=== PATIENT | male | born 1940 | race Caucasian/White ===

== ENCOUNTER 2017-10-08 23:39 | Inpatient (IN) | payer OTHER ==
--- NOTE | 2017-10-08 23:52 | PDOC ---
History of Present Illness - General History Source: Patient, Spouse Exam Limitations: No Limitations - History of Present Illness Initial Comments: 10/09/17 01:08 The patient is a 77 year old male with a significant PMH of anemia, and an umbilical hernia repair who presents to the emergency department with a seizure prior to arrival . The patient's reports that he was at home laying in the couch watching television. The patient's reports that she heard the patient in the next room groaning. The patient's reports that she noticed the patient's entire body seizing. The patient's reports that the patient was seizing for 5-6 minutes. The patient reports that he took a short nap earlier in the day. He states that he felt some tingling in his hands when he woke up. The patient reports that he is experiencing associated right shoulder pain secondary to seizure. The patient reports that he only remembers falling asleep and then waking up to medics surrounding him. The patient denies any other symptoms prior to seizure. He denies any headache, palpitations, chest pain, shortness of breath, headache and dizziness. He denies fever, chills, nausea, vomit, diarrhea ,constipation or urinary symptoms. The patient denies any other complaints. 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) Disorders: Yes (FATTY LIVER) HTN: No Hypercholesterolemia: No Liver Disease: No Seizures: No Thyroid Disease: No - Surgical History Abdominal Surgery: Yes (REPAIR UMBILICAL HERNIA) Appendectomy: No Cardiac Surgery: No Cholecystectomy: No Lung Surgery: No Neurologic Surgery: No - Immunization History Immunization Up to Date: Yes - Suicide/Smoking/Psychosocial Hx Smoking Status: No Smoking History: Never smoked Number of Cigarettes Smoked Daily: 0 Cigars Per Day: 0 Hx Alcohol Use: Yes (OCCASIONAL) Drug/Substance Use Hx: No Substance Use Type: None Hx Substance Use Treatment: No <Filomena Lopez - Last Filed: 10/10/17 17:00> - Past Medical History Allergies/Adverse Reactions: Allergies Allergy/AdvReac Type Severity Reaction Status Date / Time Sulfa (Sulfonamide Allergy Rash Verified 10/08/17 23:59 Antibiotics) Home Medications: Ambulatory Orders Cholecalciferol (Vitamin D3) [Vitamin D -] 400 unit PO DAILY 03/31/16 Ferrous Sulfate [Feosol] 325 mg PO DAILY 03/31/16 Vitamin E 1,000 unit PO DAILY 03/31/16 Amlodipine Besylate 10 mg PO DAILY 10/09/17 Atorvastatin Ca [Lipitor] 10 mg PO HS 10/09/17 Docusate Sodium [Colace -] 100 mg PO BID PRN capsule 10/10/17 levETIRAcetam [Keppra -] 500 mg PO DAILY 30 Days #60 tablet NS 10/10/17 Review of Systems - Review of Systems Able to Perform ROS?: Yes Comments:: 10/09/17 01:08 GENERAL/CONSTITUTIONAL: (+)seizure episode. No fever or chills. No weakness. HEAD, EYES, EARS, NOSE AND THROAT: No change in vision. No ear pain or discharge. No sore throat. CARDIOVASCULAR: No chest pain or shortness of breath. RESPIRATORY: No cough, wheezing, or hemoptysis. GASTROINTESTINAL: No nausea, vomiting, diarrhea or constipation. GENITOURINARY: No dysuria, frequency, or change in urination. MUSCULOSKELETAL: No joint or muscle swelling or pain. No neck or back pain. SKIN: No rash NEUROLOGIC: No headache, vertigo, loss of consciousness, or change in strength/ sensation. ENDOCRINE: No increased thirst. No abnormal weight change. HEMATOLOGIC/LYMPHATIC: No anemia, easy bleeding, or history of blood clots. ALLERGIC/IMMUNOLOGIC: No hives or skin allergy. <Sunny Goff - Last Filed: 10/09/17 01:07> *Physical Exam - Vital Signs Last Vital Signs Temp Pulse Resp BP Pulse Ox 98.2 F 71 19 134/85 98 10/08/17 23:55 10/08/17 23:55 10/08/17 23:55 10/08/17 23:55 10/08/17 23:55 - Physical Exam Comments: 10/09/17 01:08 GENERAL: Awake, alert, and fully oriented, in no acute distress HEAD: No signs of trauma EYES: PERRLA, EOMI, sclera anicteric, conjunctiva clear ENT: Auricles normal inspection, hearing grossly normal, nares patent, oropharynx clear without exudates. Moist mucosa NECK: Normal ROM, supple, no lymphadenopathy, JVD, or masses LUNGS: Breath sounds equal, clear to auscultation bilaterally. No wheezes, and no crackles HEART: Regular rate and rhythm, normal S1 and S2, no murmurs, rubs or gallops ABDOMEN: (+)obese belly, Soft, nontender, normoactive bowel sounds. No guarding , no rebound. No masses EXTREMITIES: Normal range of motion, no edema. No clubbing or cyanosis. No cords, erythema, or tenderness NEUROLOGICAL: Cranial nerves II through XII grossly intact. Normal speech, normal gait SKIN: Warm, Dry, normal turgor, no rashes or lesions noted. <Sunny Goff - Last Filed: 10/09/17 01:07> Heart Score/ECG Review - ECG Intrepretation Comment:: 10/09/17 01:17 sinus at 63, nl axis, nl interval, t wave flattening diffusely <Filomena Lopez - Last Filed: 10/10/17 17:00> ED Treatment Course - LABORATORY CBC & Chemistry Diagram: 10/09/17 08:00 10/09/17 08:00 <Filomena Lopez - Last Filed: 10/10/17 17:00> Medical Decision Making - Medical Decision Making 10/09/17 01:13 a/p: 77yo male with seizure activity tonight -currently resolved, sounded tonic clonic per the family small tongue bite no urinary incontinence changed norvasc dose last week - only medication change hx of seizure activity 1 year ago assoc with htn med change will obtain head ct, labs, ekg, cxr will discuss with neuro will keep in obs for further eval 10/09/17 01:[address] Barnard 10/09/17 01:19 Dr. Barnard recommends MRI with contrast of the brain and will see the patient in consult. <Filomena Lopez - Last Filed: 10/10/17 17:00> *DC/Admit/Observation/Transfer - Attestations Scribe Attestion: 10/09/17 01:08 Documentation prepared by Sunny Goff, acting as medical clerk for Filomena Lopez MD. <Sunny Goff - Last Filed: 10/09/17 01:07> - Discharge Dispostion Decision to Admit order: Yes - Attestations Physician Attestion: 10/10/17 17:00 I, Dr. Filomena Lopez, DO, attest that this document has been prepared under my direction and personally reviewed by me in its entirety. I further attest, that it accurately reflects all work, treatment, procedures and medical decision -making performed by me. <Filomena Lopez - Last Filed: 10/10/17 17:00> Diagnosis at time of Disposition: Seizure - Discharge Dispostion Disposition: HOME Condition at time of disposition: Stable
[2017-10-09 01:33] LABS: BASO % 0.4 % (0-2.0); HEMOGLOBIN 14.7 GM/dL (11.7-16.9); LYMPH % 8.2 % (8-40); MCH 29.7 pg (25.7-33.7); MCHC 33.4 g/dl (32.0-35.9); MEAN CELL VOLUME 89.1 fl (80-96); MEAN PLT VOLUME 9.2 fl (7.5-11.1); NEUT % 83.4 % (42.8-82.8); PLATELET COUNT 160 K/MM3 (134-434); RBC 4.94 M/mm3 (4.00-5.60); RDW 14.8 % (11.9-15.9)
[2017-10-09 01:47] LABS: INR 0.97 (0.82-1.09)
[2017-10-09 01:50] LABS: ACTIVATED PTT 22.8 SECONDS (26.9-34.4)
[2017-10-09 01:58] LABS: ALBUMIN 3.8 g/dl (3.4-5.0); ALK PHOS 87 U/L (45-117); ANION GAP 6 (8-16); BILIRUBIN,TOTAL 0.5 mg/dL (0.2-1.0); BLOOD UREA NITROGEN 23 mg/dL (7-18); CALCIUM 8.7 mg/dL (8.5-10.1); CHLORIDE 108 mmol/L (98-107); CO2 26 mmol/L (21-32); CREATININE 1.4 mg/dL (0.7-1.3); GLUCOSE,RANDOM 148 mg/dL (74-106); MAGNESIUM 2.3 mg/dL (1.8-2.4); SGOT/AST 19 U/L (15-37); SGPT/ALT 32 U/L (12-78); SODIUM 140 mmol/L (136-145); TOT PROT 7.4 g/dl (6.4-8.2)
[2017-10-09] MEDS ORDERED: PIPERACILLIN/TAZOB 3.375 GM 3.375 GM/50 ML BAG IVPB ONE (01:58)
[2017-10-09 02:13] LABS: URINE APPEARANCE CLEAR; URINE BILIRUBIN NEGATIVE (<2.0 mg/dL); URINE BLOOD NEGATIVE (NEGATIVE); URINE COLOR LTYELLOW; URINE GLUCOSE (UA) NEGATIVE (NEGATIVE); URINE KETONE NEGATIVE (NEGATIVE); URINE LEUK ESTERASE NEGATIVE (NEGATIVE); URINE NITRITE NEGATIVE (NEGATIVE); URINE PROTEIN NEGATIVE (NEGATIVE); URINE UROBILINOGEN NEGATIVE mg/dL (0.2-1.0)
--- NOTE | 2017-10-09 02:45 | PDOC ---
*Physical Exam - Vital Signs Last Vital Signs Temp Pulse Resp BP Pulse Ox 98.2 F 71 19 134/85 98 10/08/17 23:55 10/08/17 23:55 10/08/17 23:55 10/08/17 23:55 10/08/17 23:55 ED Treatment Course - LABORATORY CBC & Chemistry Diagram: 10/09/17 01:22 10/09/17 01:22 - ADDITIONAL ORDERS Additional order review: Laboratory Results 10/09/17 10/09/17 10/09/17 01:56 01:22 01:22 PT with INR INR PTT (Actin FS) Sodium Potassium Chloride Carbon Dioxide Anion Gap BUN Creatinine Creat Clearance w eGFR Random Glucose Lactic Acid 1.9 Calcium Magnesium Total Bilirubin AST ALT Alkaline Phosphatase Creatine Kinase Creatine Kinase Index CK-MB (CK-2) Troponin I B-Natriuretic Peptide 61.61 Total Protein Albumin Urine Color Ltyellow Urine Appearance Clear Urine pH 5.0 Ur Specific Basehor 1.020 Urine Protein Negative Urine Glucose (UA) Negative Urine Ketones Negative Urine Blood Negative Urine Nitrite Negative Urine Bilirubin Negative Urine Urobilinogen Negative Ur Leukocyte Esterase Negative 10/09/17 10/09/17 01:22 01:22 PT with INR 11.00 INR 0.97 PTT (Actin FS) 22.8 L Sodium 140 Potassium 4.0 Chloride 108 H Carbon Dioxide 26 D Anion Gap 6 L BUN 23 H Creatinine 1.4 H Creat Clearance w eGFR 49.14 Random Glucose 148 H D Lactic Acid Calcium 8.7 Magnesium 2.3 Total Bilirubin 0.5 AST 19 D ALT 32 D Alkaline Phosphatase 87 Creatine Kinase 230 Creatine Kinase Index 1.0 CK-MB (CK-2) 2.34 Troponin I < 0.02 B-Natriuretic Peptide Total Protein 7.4 Albumin 3.8 Urine Color Urine Appearance Urine pH Ur Specific Basehor Urine Protein Urine Glucose (UA) Urine Ketones Urine Blood Urine Nitrite Urine Bilirubin Urine Urobilinogen Ur Leukocyte Esterase 10/09/17 01:22 RBC 4.94 MCV 89.1 MCHC 33.4 RDW 14.8 D MPV 9.2 Neutrophils % 83.4 H D Lymphocytes % 8.2 D Monocytes % 7.0 Eosinophils % 1.0 Basophils % 0.4 Medical Decision Making - Medical Decision Making 10/09/17 02:43 Sign-out received from outgoing Emergency Physician Dr. Lopez Ancillary studies reviewed Case discussed in detail with oncoming Emergency Physician including history, physical exam and ancillary studies. Labs reviewed. Case discussed with Dr. Nolasco. Will admit to med/surg observation. Case discussed in detail with admitting physician including history, physical exam and ancillary studies. Admitting physician has assumed care for the patient, will follow all pending diagnostics and will complete the evaluation and treatment. *DC/Admit/Observation/Transfer Diagnosis at time of Disposition: Seizure - Discharge Dispostion Condition at time of disposition: Fair Decision to Admit order: Yes - Referrals Referrals: Sunday Hannah MD [Primary Care Provider] - - Patient Instructions - Post Discharge Activity
[2017-10-09 06:43] VITALS: BMI 36.4
[2017-10-09] MEDS ORDERED: DOCUSATE SODIUM 100 MG CAPSULE (FP) PO PRN (07:33)
[2017-10-09 08:41] LABS: CHLORIDE 109 mmol/L (98-107); POTASSIUM 4.4 mmol/L (3.5-5.1); SODIUM 141 mmol/L (136-145)
[2017-10-09 08:52] LABS: BASO % 0.5 % (0-2.0); EOS % 1.6 % (0-4.5); HEMATOCRIT 42.3 % (35.4-49); HEMOGLOBIN 14.1 GM/dL (11.7-16.9); LYMPH % 17.3 % (8-40); MCHC 33.4 g/dl (32.0-35.9); MEAN CELL VOLUME 89.7 fl (80-96); MEAN PLT VOLUME 9.3 fl (7.5-11.1); MONO % 10.3 % (3.8-10.2); NEUT % 70.3 % (42.8-82.8); PLATELET COUNT 145 K/MM3 (134-434); RBC 4.71 M/mm3 (4.00-5.60); RDW 14.5 % (11.9-15.9)
[2017-10-09 09:08] LABS: ALBUMIN 3.7 g/dl (3.4-5.0); ALK PHOS 82 U/L (45-117); ANION GAP 8 (8-16); BILIRUBIN,TOTAL 0.6 mg/dL (0.2-1.0); BLOOD UREA NITROGEN 21 mg/dL (7-18); CALCIUM 8.7 mg/dL (8.5-10.1); CO2 24 mmol/L (21-32); CREATININE 1.2 mg/dL (0.7-1.3); GLUCOSE,RANDOM 100 mg/dL (74-106); MAGNESIUM 2.3 mg/dL (1.8-2.4); PHOSPHOROUS 2.9 mg/dL (2.5-4.9); SGOT/AST 25 U/L (15-37); SGPT/ALT 28 U/L (12-78)
[2017-10-09] MEDS ORDERED: PATIENT'S OWN MEDICATION (NON-FORMULARY) (Vitamin E [Vitamin E] 1,000 UNIT) PO SCH (10:00)
[2017-10-09] MEDS: CHOLECALCIFEROL (VITAMIN D3) 400 UNIT TABLET (FP) PO SCH (10:03)
[2017-10-09] MEDS: amLODIPine BESYLATE 10 MG TABLET (FP) PO SCH (10:03)
[2017-10-09] MEDS: FERROUS SO4 325 MG TABLET (FP) PO SCH (10:03)
--- NOTE | 2017-10-09 10:20 | EKG ---
Test Reason : Blood Pressure : / mmHG Vent. Rate : 063 BPM Atrial Rate : 063 BPM P-R Int : 194 ms QRS Dur : 116 ms QT Int : 420 ms P-R-T Axes : 016 007 008 degrees QTc Int : 429 ms SINUS RHYTHM WITH MARKED SINUS ARRHYTHMIA NONSPECIFIC ST ABNORMALITY WHEN COMPARED WITH ECG OF 08-JAN-2013 12:50, PREMATURE VENTRICULAR COMPLEXES ARE NO LONGER PRESENT Confirmed by ANN MARIE SOOD MD ([id number]) on 10/09/2017 10:19:47 AM Referred By: Confirmed By:ANN MARIE SOOD MD
--- NOTE | 2017-10-09 14:20 | CON.NEURO ---
Consult - Alcohol/Substance Use Hx Alcohol Use: Yes (OCCASIONAL) - Smoking History Smoking history: Never smoked Have you smoked in the past 12 months: No Aproximately how many cigarettes per day: 0 Home Medications - Allergies Allergies/Adverse Reactions: Allergies Allergy/AdvReac Type Severity Reaction Status Date / Time Sulfa (Sulfonamide Allergy Rash Verified 10/08/17 23:59 Antibiotics) - Home Medications Home Medications: Ambulatory Orders Cholecalciferol (Vitamin D3) [Vitamin D3 -] 400 unit PO DAILY 03/31/16 Ferrous Sulfate [Feosol] 325 mg PO DAILY 03/31/16 Vitamin E 1,000 unit PO DAILY 03/31/16 Amlodipine Besylate 10 mg PO DAILY 10/09/17 Atorvastatin Ca [Lipitor] 10 mg PO HS 10/09/17 Physical Exam-Neuro Vital Signs: Vital Signs Temperature 98.1 F 10/09/17 06:34 Pulse Rate 60 10/09/17 06:34 Respiratory Rate 18 10/09/17 06:34 Blood Pressure 148/96 10/09/17 06:34 O2 Sat by Pulse Oximetry (%) 96 10/09/17 06:34 Labs: CBC, BMP 10/09/17 08:00 10/09/17 08:00 INR, PTT INR 0.97 (0.82-1.09) 10/09/17 01:22 Assessment/Plan cc episode of seizure HPI 77 year old male history of Anemia, HTN, HLD. He presented with generalized tonic clonic seizure , as described by patient ( as per family told him). He has similar episode in past and work up was negative and was thought to be attributed to Hypertensive medication change. This time he has small tongue bite and no incontinence. His metabolite were normal. He denies any other focal neurological condition. his ct scan of brain and mri ofbrain is normal. PMH as above SH,ROS,FH reviewed in chart Allergies/Adverse Reactions: Allergies Allergy/AdvReac Type Severity Reaction Status Date / Time Sulfa (Sulfonamide Allergy Rash Verified 10/08/17 23:59 Antibiotics) Home Medications: Cholecalciferol (Vitamin D3) [Vitamin D3 -] 400 unit PO DAILY 03/31/16 Ferrous Sulfate [Feosol] 325 mg PO DAILY 03/31/16 Vitamin E 1,000 unit PO DAILY 03/31/16 Norvasc 10 mg once a day Simvastatin 10mg once a day Neurological Examination Alert oriented x 3, speech is normal, able to follow command EOMI, PUpils is reactive, no face asymmetry Moving all extremity sensation is normal gait and coordination MRI of brain showed there is slight asymmetry of temporal lobe ct head unremarkable Assessment- Second episode of unprovoked seizure, neuro exam is normal neur imaging is normal Plan- Suggest to start AED keppra 500 mg po bid seizure precautions follow up outpatient, would do eeg outpatient Thnaking you so much Pelon Barnard MD
[2017-10-09] MEDS: levETIRAcetam 500 MG TABLET (FP) PO SCH (16:35)
[2017-10-09] MEDS ORDERED: ATORVASTATIN CA 10 MG TABLET (FP) PO SCH (22:00)
--- NOTE | 2017-10-10 08:47 | PN ---
Progress Note (short form) - Note Progress Note: HPI 77 year old male history of Anemia, HTN, HLD. He presented with generalized tonic clonic seizure , as described by patient ( as per family told him). He has similar episode in past and work up was negative and was thought to be attributed to Hypertensive medication change. This time he has small tongue bite and no incontinence. His metabolite were normal. He denies any other focal neurological condition. his ct scan of brain and mri ofbrain is normal. P Neurological Examination Alert oriented x 3, speech is normal, able to follow command EOMI, PUpils is reactive, no face asymmetry Moving all extremity sensation is normal gait and coordination MRI of brain showed there is slight asymmetry of temporal lobe ct head unremarkable Assessment- Second episode of unprovoked seizure, neuro exam is normal neur imaging is normal Plan- continue keppra 500 mg po bid seizure precautions follow up outpatient, would do eeg outpatient Thanking you so much Pelon Barnard MD
[2017-10-10] MEDS: FERROUS SO4 325 MG TABLET (FP) PO SCH (09:23)
[2017-10-10] MEDS: amLODIPine BESYLATE 10 MG TABLET (FP) PO SCH (09:23)
[2017-10-10] MEDS: levETIRAcetam 500 MG TABLET (FP) PO SCH (09:23)
[2017-10-10] MEDS: CHOLECALCIFEROL (VITAMIN D3) 400 UNIT TABLET (FP) PO SCH (09:23)
--- NOTE | 2017-10-10 10:57 | HP ---
Admitting History and Physical - Admission History of Present Illness: The patient is a 77 year old male with a significant PMH of anemia, and an umbilical hernia repair who presents to the emergency department with a seizure prior to arrival . The patient's reports that he was at home laying in the couch watching television. The patient's reports that she heard the patient in the next room groaning. The patient's reports that she noticed the patient's entire body seizing. The patient's reports that the patient was seizing for 5-6 minutes. The patient reports that he took a short nap earlier in the day. He states that he felt some tingling in his hands when he woke up. The patient reports that he is experiencing associated right shoulder pain secondary to seizure. The patient reports that he only remembers falling asleep and then waking up to medics surrounding him. The patient denies any other symptoms prior to seizure. He denies any headache, palpitations, chest pain, shortness of breath, headache and dizziness. He denies fever, chills, nausea, vomit, diarrhea ,constipation or urinary symptoms. The patient denies any other complaints. History Source: Patient, Medical Record Limitations to Obtaining History: No Limitations - Past Medical History Cardiovascular: Yes: HTN - Smoking History Smoking history: Never smoked Have you smoked in the past 12 months: No Aproximately how many cigarettes per day: 0 - Alcohol/Substance Use Hx Alcohol Use: Yes (OCCASIONAL) History of Substance Use: reports: None - Social History Usual Living Arrangement: Yes: With Spouse ADL: Independent History of Recent Travel: No Home Medications - Allergies Allergies/Adverse Reactions: Allergies Allergy/AdvReac Type Severity Reaction Status Date / Time Sulfa (Sulfonamide Allergy Rash Verified 10/08/17 23:59 Antibiotics) - Home Medications Home Medications: Ambulatory Orders Cholecalciferol (Vitamin D3) [Vitamin D3 -] 400 unit PO DAILY 03/31/16 Ferrous Sulfate [Feosol] 325 mg PO DAILY 03/31/16 Vitamin E 1,000 unit PO DAILY 03/31/16 Amlodipine Besylate 10 mg PO DAILY 10/09/17 Atorvastatin Ca [Lipitor] 10 mg PO HS 10/09/17 Review of Systems - Review of Systems Constitutional: reports: No Symptoms Eyes: reports: No Symptoms HENT: reports: No Symptoms Neck: reports: No Symptoms Cardiovascular: reports: No Symptoms Respiratory: reports: No Symptoms Gastrointestinal: reports: No Symptoms Genitourinary: reports: No Symptoms Breasts: reports: No Symptoms Reported Musculoskeletal: reports: No Symptoms Integumentary: reports: No Symptoms Neurological: reports: No Symptoms Endocrine: reports: No Symptoms Hematology/Lymphatic: reports: No Symptoms Psychiatric: reports: No Symptoms Physical Examination Vital Signs: Vital Signs Temperature 97.9 F 10/10/17 05:29 Pulse Rate 68 10/10/17 05:29 Respiratory Rate 20 10/10/17 05:29 Blood Pressure 135/82 10/10/17 05:29 O2 Sat by Pulse Oximetry (%) 97 10/09/17 21:00 Constitutional: Yes: Well Nourished, Calm, Obese Eyes: Yes: WNL HENT: Yes: WNL Neck: Yes: WNL Cardiovascular: Yes: WNL Respiratory: Yes: WNL Gastrointestinal: Yes: WNL ...Rectal Exam: Yes: Deferred Renal/: Yes: WNL Breast(s): Yes: WNL Musculoskeletal: Yes: WNL Extremities: Yes: WNL Edema: No Peripheral Pulses WNL: Yes Integumentary: Yes: WNL Neurological: Yes: WNL, Alert, Oriented ...Motor Strength: WNL Psychiatric: Yes: WNL Labs: CBC, BMP 10/09/17 08:00 10/09/17 08:00 Problem List - Problems (1) Seizure Assessment/Plan: second episode of seizure On first even - complete work up negative per patient -- on no medications discussed any possible precipitating factors -- negative Neurology evaluation maintain seizure precautions medication Code(s): R56.9 - UNSPECIFIED CONVULSIONS (2) HTN (hypertension) Assessment/Plan: continue with current dose of amlodipine trend Bp discussed weight loss / diet Code(s): I10 - ESSENTIAL (PRIMARY) HYPERTENSION (3) Hyperlipemia Assessment/Plan: continue statins follow up as out patient Code(s): E78.5 - HYPERLIPIDEMIA, UNSPECIFIED (4) Anemia Code(s): D64.9 - ANEMIA, UNSPECIFIED
--- NOTE | 2017-10-10 13:23 | DS ---
Physical Examination Vital Signs: Vital Signs Temperature 97.9 F 10/10/17 05:29 Pulse Rate 68 10/10/17 05:29 Respiratory Rate 20 10/10/17 05:29 Blood Pressure 135/82 10/10/17 05:29 O2 Sat by Pulse Oximetry (%) 97 10/09/17 21:00 Findings/Remarks: The patient is a 77 year old male with a significant PMH of anemia, HTN, and an umbilical hernia repair who presents to the emergency department with a seizure prior to arrival . The patient's reports that he was at home laying in the couch watching television. The patient's reports that she heard the patient in the next room groaning. The patient's reports that she noticed the patient's entire body seizing. The patient's reports that the patient was seizing for "5-6 minutes". The patient reports that he took a short nap earlier in the day. He states that he felt some tingling in his hands when he woke up. The patient reports that he is experiencing associated right shoulder pain secondary to seizure. The patient reports that he only remembers falling asleep and then waking up to medics surrounding him. The patient denies any other symptoms prior to seizure. He denies any headache, palpitations, chest pain, shortness of breath, headache and dizziness. He denies fever, chills, nausea, vomit, diarrhea ,constipation or urinary symptoms. The patient denies any other complaints. patient seen and evaluated by Neurology started on Keppra 5000 BID will continue out patient work up Patient instructed to call Dr Motley' office for followup appointment and follow up with Neurology to complete work up and monitoring Constitutional: Yes: Well Nourished, No Distress, Obese Eyes: Yes: Conjunctiva Clear, EOM Intact HENT: Yes: Atraumatic, Normocephalic Neck: Yes: Supple, Trachea Midline Cardiovascular: Yes: Regular Rate and Rhythm Respiratory: Yes: Regular Gastrointestinal: Yes: Normal Bowel Sounds, Soft ...Rectal Exam: Yes: WNL, Deferred Renal/: Yes: WNL Breast(s): Yes: WNL Musculoskeletal: Yes: WNL Extremities: Yes: WNL Edema: No Peripheral Pulses WNL: No Integumentary: Yes: WNL Neurological: Yes: WNL, Alert, Oriented ...Motor Strength: WNL Psychiatric: Yes: WNL, Alert, Oriented Labs: CBC, BMP 10/09/17 08:00 10/09/17 08:00 Discharge Summary Reason For Visit: SEIZURE Current Active Problems HTN (hypertension) (Acute) Seizure (Acute) Condition: Fair - Instructions Referrals: Sunday Hannah MD [Primary Care Provider] - - Home Medications Comprehensive Discharge Medication List: Ambulatory Orders Cholecalciferol (Vitamin D3) [Vitamin D3 -] 400 unit PO DAILY 03/31/16 Ferrous Sulfate [Feosol] 325 mg PO DAILY 03/31/16 Vitamin E 1,000 unit PO DAILY 03/31/16 Amlodipine Besylate 10 mg PO DAILY 10/09/17 Atorvastatin Ca [Lipitor] 10 mg PO HS 10/09/17 Keppra 500 mg BID
[2017-10-10 13:39] VITALS: BP 137/75; PULSE 59; TEMP 97.8
== END 2017-10-10 13:50 | disposition home or self-care (01) | DRG 101 ==
LOC: JER 23:39 → SUPCPDRO 23:39 → JERBED 10-09 02:53 → J6S 10-09 04:58 → OBSVTOIN 10-09 07:33
PROVIDERS: ADMIT Family Medicine; ATTEND Family Medicine
DX: G40.409 Other generalized epilepsy and epileptic syndromes, not intractable, without status epilepticus (principal); D64.9 Anemia, unspecified; I10 Essential (primary) hypertension; E78.5 Hyperlipidemia, unspecified; E66.9 Obesity, unspecified; Z68.36 Body mass index [BMI] 36.0-36.9, adult
CPT/HCPCS: 36415; 70450-TC; 70552-TC; 71045-TC-FY; 80053; 81003; 82550; 82553; 83605; 83735; 83880; 84100; 84484; 85025; 85610; 85730; 93005; 93010; 97116-GP; 97161-GP; 99283-25; G0378

== ENCOUNTER 2018-07-20 09:33 | Day surgery (SDC) | payer OTHER ==
[2018-07-19 11:08] VITALS: BMI 34.7
[2018-07-20] MEDS ORDERED: ONDANSETRON 4 MG/2 ML VIAL IVPUSH PRN (09:51)
[2018-07-20] MEDS ORDERED: oxyCODONE HCL 5 MG TABLET PO PRN ×2 (09:51)
[2018-07-20] MEDS ORDERED: LACTATED RINGERS SOLUTION 1,000 ML IV SCH (10:00)
--- NOTE | 2018-07-20 10:40 | OP ---
Operative Note - Note: Operative Date: 07/20/18 Pre-Operative Diagnosis: BPH bladder stones Operation: Lithopaxy of bladder stones Greenlight laser of prostate Surgeon: Henry Venegas MD. Anesthesia: MAC Operative Report Dictated: Yes
[2018-07-20] MEDS ORDERED: ELECTROLYTE-148 SOLN 1,000 ML IV SCH (10:45)
[2018-07-20] MEDS ORDERED: ceFAZolin SODIUM 1 GM VIAL IVPB ONE ×2 (11:00)
[2018-07-20] MEDS ORDERED: ACETAMINOPHEN 1000 MG/100 ML VIAL (NON FORMULARY) IVPB ONE (12:45)
[2018-07-20] MEDS ORDERED: KETOROLAC TROMETHAMINE 15 MG/ML VIAL IVPUSH ONE (12:45)
--- NOTE | 2018-07-20 13:59 | OP ---
DATE OF OPERATION: 07/20/2018 PREOPERATIVE DIAGNOSIS: Benign prostatic hypertrophy, bladder calculi. POSTOPERATIVE DIAGNOSIS: Benign prostatic hypertrophy, bladder calculi. PROCEDURE: Litholopaxy of bladder calculi, green light laser of prostate. HISTORY: A 78-year-old gentleman with a known history of BPH on recent evaluation was found to have approximately a 2-cm bladder calculi with obstructing lateral lobes and approximately 5.5-cm prostate. After discussing treatment options, the patient elected to undergo the above-stated procedure. The risks and benefits of treatment and alternative treatments were discussed in detail including reoperation, bladder neck contracture stricture, infection, and retrograde ejaculation. Discussion was not limited to above. DESCRIPTION OF PROCEDURE: The patient was brought to the operating room and placed in supine position. Once general anesthesia was administered, the patient was transferred to the dorsal lithotomy position, prepped and draped in the standard sterile fashion. Intravenous antibiotics were given. A time-out was performed. At this time, using a Holmium laser at a setting of 1, 2, and 15 MHz, the stone was fragmented into multiple small fragments, which were evacuated out with the F2G evacuator. No residual bladder stones were identified. At this time, using the Holmium laser at a setting of 20, the prostatic tissue was vaporized from 10 o'clock to 6 o'clock and then 2 o'clock to 6 o'clock position from the level of the bladder neck to approximately 1 cm proximal to the verumontanum. There was no significant bleeding. A quite large channel was created. There was a fair amount of obstructing lateral lobes. Total Joules used during the procedure was approximately 91,000. At this time, a 20-[place] catheter was placed to straight drainage and was draining clear urine. The patient was then brought to the recovery room in stable and satisfactory condition. Michelle [id number]
[2018-07-20 18:49] VITALS: BP 128/78; PULSE 68; TEMP 97.3
--- NOTE | 2018-07-21 16:50 | PATH ---
Surgical Pathology Report Patient Name: ELIAS MCCONNELL [facility]. Rec. #: [id number] /Age/Gender: 1940 (Age: 78) / M Account: [id number] Location: [facility] SURGICAL Taken: 07/20/2018 Received: 07/20/2018 Reported: 07/21/2018 Physicians: Henry Venegas M.D. Specimen(s) Received BLADDER STONES Clinical History BPH, bladder stone Final Diagnosis BLADDER STONES, REMOVAL: CONSISTENT WITH BLADDER CALCULI. SENT TO CHEMICAL ANALYSIS. Electronically Signed Aníbal David M.D. Gross Description Received in formalin, labeled "bladder stones" are multiple brown to black calculi measuring 2 x 1 x 0.2 cm in aggregate. Gross examination only. No sections submitted. Sent to chemical analysis. CALLY/07/20/2018 moriah/07/20/2018
[2018-07-26 14:12] LABS: CA OXALATE MONOHYDR. 98 % (.); WEIGHT 862.2 mg (.)
== END 2018-07-20 15:00 | disposition home or self-care (01) ==
LOC: JASU-SURG 09:33
PROVIDERS: ATTEND Urology
PROC: 0TCB8ZZ Extirpation of Matter from Bladder, Via Natural or Artificial Opening Endoscopic (ICD-10-PCS; principal; 2018-07-20 10:00)
PROC: 0VT08ZZ Resection of Prostate, Via Natural or Artificial Opening Endoscopic (ICD-10-PCS; 2018-07-20 10:00)
DX: N21.0 Calculus in bladder (principal); N40.0 Benign prostatic hyperplasia without lower urinary tract symptoms
CPT/HCPCS: 36415; 82360; 88300-TC; 94760; J0131

== ENCOUNTER 2018-12-17 12:14 | Day surgery (SDC) | payer OTHER ==
[2018-12-16 09:01] VITALS: BMI 35.5
--- NOTE | 2018-12-17 15:23 | HP ---
Admitting History and Physical - Admission Chief Complaint: left inguinal hernia History of Present Illness: 78 y.o. male with left inguino-scrotal hernia associated with mild discomfort on exertion History Source: Patient - Past Medical History Cardiovascular: Yes: HTN - Smoking History Smoking history: Never smoked Have you smoked in the past 12 months: No Aproximately how many cigarettes per day: 0 - Alcohol/Substance Use Hx Alcohol Use: Yes (OCCASIONAL) History of Substance Use: reports: None - Social History ADL: Independent History of Recent Travel: No Home Medications - Allergies Allergies/Adverse Reactions: Allergies Allergy/AdvReac Type Severity Reaction Status Date / Time Sulfa (Sulfonamide AdvReac Verified 12/17/18 12:56 Antibiotics) - Home Medications Home Medications: Ambulatory Orders Cholecalciferol (Vitamin D3) [Vitamin D -] 400 unit PO DAILY 03/31/16 Vitamin E 1,000 unit PO DAILY 03/31/16 Amlodipine Besylate 10 mg PO DAILY 10/09/17 Atorvastatin Ca [Lipitor] 10 mg PO HS 10/09/17 Hydrochlorothiazide 50 mg PO DAILY 07/19/18 levETIRAcetam [Keppra -] 500 mg PO BID 07/19/18 Losartan Potassium 50 mg PO DAILY 07/20/18 Saw Howe 160 mg PO DAILY 12/16/18 Review of Systems - Review of Systems HENT: reports: No Symptoms Respiratory: reports: No Symptoms Gastrointestinal: reports: No Symptoms Physical Examination Vital Signs: Vital Signs Temperature 97.5 F L 12/17/18 12:58 Pulse Rate 57 L 12/17/18 12:58 Respiratory Rate 16 12/17/18 12:58 Blood Pressure 137/75 12/17/18 12:58 O2 Sat by Pulse Oximetry (%) 97 12/17/18 12:58 Constitutional: Yes: No Distress, Obese Cardiovascular: Yes: Regular Rate and Rhythm Respiratory: Yes: CTA Bilaterally Gastrointestinal: Yes: Soft, Hernia (left inguino-scrotal hernia) Problem List - Problems (1) Left inguinal hernia Assessment/Plan: robotic LIH repair with mesh Code(s): K40.90 - UNIL INGUINAL HERNIA, W/O OBST OR GANGR, NOT SPCF RECUR
[2018-12-17] MEDS ORDERED: SUCCINYLCHOLINE CHLORIDE 200 MG/10 ML SYRINGE ONE (15:30)
[2018-12-17] MEDS ORDERED: ROCURONIUM BROMIDE 50 MG/5 ML SYRINGE ONE (15:30)
[2018-12-17] MEDS ORDERED: PROPOFOL 20 ML ONE (15:30)
[2018-12-17] MEDS ORDERED: oxyCODONE HCL 5 MG TABLET PO PRN (15:33)
[2018-12-17] MEDS ORDERED: ONDANSETRON 4 MG/2 ML VIAL IVPUSH PRN (15:33)
[2018-12-17] MEDS ORDERED: PROMETHAZINE HCL 25 MG/1 ML VIAL IVPUSH PRN (15:33)
[2018-12-17] MEDS ORDERED: ceFAZolin SODIUM 1 GM VIAL ONE (15:41)
[2018-12-17] MEDS ORDERED: LIDOCAINE HCL/PF 2% SDV 5ML VIAL ONE (15:41)
[2018-12-17] MEDS ORDERED: DEXAMETHASONE SOD PHOSPHATE 4 MG/1 ML VIAL ONE (15:41)
[2018-12-17] MEDS ORDERED: LACTATED RINGERS SOLUTION 1,000 ML IV SCH (15:45)
[2018-12-17] MEDS ORDERED: ceFAZolin SODIUM 1 GM VIAL IVPB ONE (15:48)
[2018-12-17] MEDS ORDERED: BUPIVACAINE HCL/PF 0.5% (5 MG/ML) 30 ML VIAL IJ ONE (16:10)
[2018-12-17] MEDS ORDERED: NEOSTIGMINE METHYLSULFATE 0.5 MG/ML - 10 ML MDV ONE (17:50)
[2018-12-17] MEDS ORDERED: GLYCOPYRROLATE 0.2 MG/1 ML VIAL ONE (17:50)
--- NOTE | 2018-12-17 18:06 | OP ---
Operative Note - Note: Operative Date: 12/17/18 Pre-Operative Diagnosis: Left inguinal hernia Operation: robotic assisted Left inguinal hernia repair with mesh Post-Operative Diagnosis: Same as Pre-op Surgeon: Donnie Velazco Collar Separator: Timmy Machuca Anesthesiologist/DIGITAL MARKETER: Wilberto Poon Anesthesia: General Estimated Blood Loss (mls): 5 Operative Report Dictated: Yes
--- NOTE | 2018-12-17 18:07 | SURG ---
Surgery Eligibility Worker Note Eligibility Worker: Timmy Machuca PA-C Date of Service: 12/17/18 Diagnosis: Left inguinal hernia Procedure: Robotic assisted left inguinal hernia repair with mesh I was present for the entirety of the operative procedure. For further detail, please refer to operative report. Visit type - Case Type Case Type: Scheduled - Emergency Emergency Visit: No - New patient This patient is new to me today: Yes Date on this admission: 12/17/18 - Critical Care Critical Care patient: No
[2018-12-17 19:20] VITALS: BP 138/74; PULSE 55; TEMP 98
--- NOTE | 2018-12-18 11:10 | OP ---
DATE OF OPERATION: 12/17/2018 PROCEDURE: Robotic-assisted laparoscopic left inguinal hernia repair with mesh. PREOPERATIVE DIAGNOSIS: Left inguinal hernia without obstruction. POSTOPERATIVE DIAGNOSIS: Left inguinal hernia without obstruction. SURGEON: Donnie Velazco MD CLOTH DOUBLING MACHINE OPERATOR: Timmy Machuca PA-C ANESTHESIA: General endotracheal. FINDINGS AND PROCEDURE: This is a 78-year-old male who presented with large, early inguinal scrotal hernia on the left side, associated with mild discomfort. On physical exam, patient has a partially-reducible left inguinal bulge. So, patient was advised elective hernia repair, and consent was obtained after discussing the risks, benefits, and alternatives of the procedure. Patient was brought to the operating room and placed in supine position. General endotracheal anesthesia was administered. The abdomen was prepped and draped in the usual sterile fashion. Using 0.5% Marcaine, local anesthesia was administered to the proposed incision sites. The peritoneal cavity was entered using the Veress needle technique. An 8-mm supraumbilical incision to the left of midline. Pneumoperitoneum was established. An 8-mm port was then inserted into the peritoneal cavity, and the peritoneal cavity was carefully inspected, was noted to be free of inadvertent injury. A mesh was noted in the posterior abdominal wall around the umbilicus with the port penetrating the mesh. Another 8-mm port was inserted to the right of midline, away from the edge of the mesh. Another port was inserted to the left of midline, 8 cm away from the middle port, also away from the mesh. The intraabdominal adhesions were partially taken down to provide room for viewing and for the instruments to pass through. Afterwards, patient was placed in Trendelenburg position. The target organ was set, and the robotic arms were docked. Fenestrated bipolar forceps were inserted at the left-sided port, and the EndoWrist teresa connected to monopolar cautery was inserted in the right-sided port. Afterwards, the undersigned scrubbed out to commence the console part of the procedure. A preperitoneal pocket was created at the level of the anterior-superior iliac spine using the EndoWrist teresa. The preperitoneal pocket was carried towards the left inguinal region using the inferior epigastric vessels as the landmark. The hernia sac was empty at this point. The dissection was carried medially towards the underside of the symphysis pubis and laterally towards the anterior-superior iliac spine. A large lipoma of the cord was noted, and this was carefully dissected away from the spermatic cord. After these structures were completely reduced as well as the hernia sac, the 15 x 10 cm ProGrip mesh was deployed, covering the indirect hernia, the inguinal floor, the femoral canal, and the Hesselbach triangle laterally. The deployment was deemed satisfactory. The preperitoneal pocket was closed with continuous V-Loc 2-0 absorbable sutures. A small rent of the area of the hernia sac was also closed with V-Loc 2-0 absorbable sutures. After the reconstruction was deemed satisfactory, the instruments were removed, the robotic arms were undocked, and the pneumoperitoneum was evacuated. The ports were removed. The wounds were closed with subcuticular Biosyn 4-0 sutures, reinforced with Dermabond. The patient was successively extubated and transferred to the postanesthesia care unit in satisfactory condition. Estimated blood loss was about 25 mL. Wound class: Clean. The patient received 2 g of Ancef prior to the start of the procedure. Michelle [id number] MTDD
== END 2018-12-17 20:00 | disposition home or self-care (01) ==
LOC: JASU-SURG 12:14
PROVIDERS: ATTEND Surgery
PROC: 8E0W4CZ Robotic Assisted Procedure of Trunk Region, Percutaneous Endoscopic Approach (ICD-10-PCS; 2018-12-17)
PROC: 0YU64JZ Supplement Left Inguinal Region with Synthetic Substitute, Percutaneous Endoscopic Approach (ICD-10-PCS; principal; 2018-12-17 14:00)
DX: K40.90 Unilateral inguinal hernia, without obstruction or gangrene, not specified as recurrent (principal)
CPT/HCPCS: 49650; S2900; 86850; 86900; 86901; 94760

== ENCOUNTER 2019-05-10 09:07 | Emergency (ER) | payer OTHER ==
[2019-05-10 09:14] VITALS: BMI 35.6
--- NOTE | 2019-05-10 10:15 | PDOC ---
History of Present Illness <Cuate [place] - Last Filed: 05/10/19 14:51> - General History Source: Patient Exam Limitations: No Limitations - History of Present Illness Initial Comments: 05/11/19 19:27 79y M with PMH of HTN, edema presenting to ED for edema and redness of the LLE. Patient states that he has been taking water pills for edema but 2 days ago he noticed the L calf getting bigger and noted a 'rash' on the leg. He also endorses pain in the calf. Denies fever, chills, chest pain, back pain, recent travel, recent surgeries, new medications. Pt states that he does note feeling more short of breath when he lays down flat. 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) Disorders: Yes (FATTY LIVER-JAUNDICED AT 13 YEARS OLD) HTN: Yes Hypercholesterolemia: No Liver Disease: No Seizures: Yes (11/2017 HAD A SEIZURE BLAMED ON SLEEP APNEA) Thyroid Disease: No - Surgical History Abdominal Surgery: Yes (REPAIR UMBILICAL HERNIA) Appendectomy: No Cardiac Surgery: No Cholecystectomy: No Lung Surgery: No Neurologic Surgery: No Orthopedic Surgery: No - Immunization History Immunization Up to Date: Yes - Psycho Social/Smoking Cessation Hx Smoking Status: No Smoking History: Unknown if ever smoked Have you smoked in the past 12 months: No Number of Cigarettes Smoked Daily: 0 Cigars Per Day: 0 Hx Alcohol Use: Yes (OCCASIONAL) Drug/Substance Use Hx: No Substance Use Type: None Hx Substance Use Treatment: No <Ruth Butler - Last Filed: 05/11/19 19:34> - Past Medical History Home Medications: Ambulatory Orders Cholecalciferol (Vitamin D3) [Vitamin D -] 400 unit PO DAILY 03/31/16 Vitamin E 1,000 unit PO DAILY 03/31/16 Amlodipine Besylate 10 mg PO DAILY 10/09/17 Atorvastatin Ca [Lipitor] 40 mg PO HS 10/09/17 Hydrochlorothiazide 25 mg PO DAILY 07/19/18 levETIRAcetam [Keppra -] 500 mg PO BID 07/19/18 Losartan Potassium 50 mg PO DAILY 07/20/18 Review of Systems - Review of Systems Constitutional: No: Symptoms Reported HEENTM: No: Symptoms Reported Respiratory: No: Symptoms reported Cardiac (ROS): Yes: See HPI ABD/GI: No: Symptoms Reported : No: Symptoms Reported Musculoskeletal: Yes: See HPI Integumentary: Yes: See HPI Neurological: No: Symptoms reported <Ruth Butler - Last Filed: 05/11/19 19:34> *Physical Exam - Vital Signs Last Vital Signs Temp Pulse Resp BP Pulse Ox 98.2 F 64 18 142/67 99 05/10/19 09:13 05/10/19 09:13 05/10/19 09:13 05/10/19 09:13 05/10/19 09:13 <Cuate [place] - Last Filed: 05/10/19 14:51> - Vital Signs Last Vital Signs Temp Pulse Resp BP Pulse Ox 98.2 F 64 18 142/67 99 05/10/19 09:13 05/10/19 09:13 05/10/19 09:13 05/10/19 09:13 05/10/19 09:13 - Physical Exam General Appearance: Yes: Appropriately Dressed, Obese. No: Apparent Distress HEENT: positive: EOMI, SOILA, Normal ENT Inspection Neck: positive: Trachea midline, Supple Respiratory/Chest: positive: Lungs Clear, Normal Breath Sounds. negative: Crackles, Rales, Rhonchi, Stridor, Wheezing Cardiovascular: positive: Regular Rhythm, Regular Rate, S1, S2. negative: Edema , JVD, Murmur Vascular Pulses: Dorsalis-Pedis (R): 1+, Doralis-Pedis (L): 1+ Gastrointestinal/Abdominal: positive: Normal Bowel Sounds, Soft. negative: Tender Musculoskeletal: negative: CVA Tenderness Extremity: positive: Normal Capillary Refill, Swelling (bilateral pitting edema , L>R), Calf Tenderness (L calf), Erythema (L calf) Integumentary: positive: Normal Color, Dry, Warm, Rash (erythematous patches on L calf) Neurologic: positive: senior application software engineer II-XII NML intact, Fully Oriented, Alert, Normal Mood/ Affect, Normal Response, Motor Strength 5/5 <Ruth Butler - Last Filed: 05/11/19 19:34> ED Treatment Course - LABORATORY CBC & Chemistry Diagram: 05/10/19 10:45 05/10/19 10:45 - ADDITIONAL ORDERS Additional order review: Laboratory Results 05/10/19 05/10/19 05/10/19 10:45 10:45 10:45 PT with INR 11.90 INR 1.01 PTT (Actin FS) 27.1 Sodium 137 Potassium 3.1 L Chloride 101 Carbon Dioxide 28 Anion Gap 9 BUN 32.9 H Creatinine 1.3 Est GFR (CKD-EPI)AfAm 60.15 Est GFR (CKD-EPI)NonAf 51.90 Random Glucose 90 Calcium 9.0 Total Bilirubin 0.7 AST 26 ALT 28 Alkaline Phosphatase 78 Creatine Kinase 194 Creatine Kinase Index 0.9 CK-MB (CK-2) 1.9 Troponin I < 0.02 B-Natriuretic Peptide 67.2 Total Protein 6.9 Albumin 3.6 05/10/19 10:45 RBC 4.85 MCV 89.3 MCHC 33.2 RDW 14.3 MPV 9.8 Neutrophils % 63.7 Lymphocytes % 20.9 D Monocytes % 11.3 H Eosinophils % 3.5 D Basophils % 0.6 - RADIOLOGY Radiology Studies Ordered: Category Date Time Status CHEST PA & LAT [RAD] Stat Radiology 05/10/19 10:47 Completed - Medications Given in the ED: ED Medications Discontinued Medications Generic Name Dose Route Start Last Admin Trade Name Freq PRN Reason Stop Dose Admin Dalbavancin 1,500 mg/ Dextrose 500 mls @ 1,000 mls/hr 05/10/19 13:41 14:31 IVPB 05/10/19 14:10 1,000 mls/hr ONCE ONE Administration Potassium Chloride 40 meq 05/10/19 14:03 05/10/19 14:31 K-Dur - PO 05/10/19 14:04 40 meq ONCE ONE Administration <Cuate [place] - Last Filed: 05/10/19 14:51> - LABORATORY CBC & Chemistry Diagram: 05/10/19 10:45 05/10/19 10:45 <Ruth Butler - Last Filed: 05/11/19 19:34> Medical Decision Making - Medical Decision Making 05/11/19 19:31 79y M presenting for LLE swelling, erythema, tenderness vitals wnl dvt v. cellulitis v. chf will obtain basic labs, bnp, cxr, doppler studies rash on leg is erythematous patches. pt also has brown patches which he states started out red like the current ones he has. low suspicion for TEN or SJS labs wnl, neg bnp, normal cxr. doppler negative for DVT. likely cellulitis. given history of venous insufficiency, will give IV dose here. Dalvance given. erythematous area marked, pt advised to return to ED if redness extends beyond line. Also advised to return if swelling gets worse. PMD f/u Dispo:home <Ruth Butler - Last Filed: 05/11/19 19:34> Discharge <MiroslavaCuate - Last Filed: 05/10/19 14:51> - Discharge Information Problems reviewed: Yes - Admission No <Ruth Butler - Last Filed: 05/11/19 19:34> - Discharge Information Clinical Impression/Diagnosis: Cellulitis Qualifiers: Site of cellulitis: extremity Site of cellulitis of extremity: lower extremity Laterality: left Qualified Code(s): L03.116 - Cellulitis of left lower limb Condition: Good Disposition: HOME - Follow up/Referral Referrals: Sunday Hannah MD [Primary Care Provider] - - Patient Discharge Instructions Patient Printed Discharge Instructions: DI for Cellulitis -- Adult Additional Instructions: You were seen in the emergency room today for left leg swelling and redness. This is likely cellulitis, an infection of the skin. You got a dose of an antibiotic here in the emergency room and this should cover the infection. Return to the ER or see your primary doctor in 48 hours to have your infection re-checked. A gisselle was placed, if you notice the redness spreading beyond this line then you should come back to the ER. Also come back if the swelling gets worse, you notice blisters, you develop fevers/chills or if any new or concerning symptom develops. Thank you - Post Discharge Activity
--- NOTE | 2019-05-10 12:00 | PDOC ---
Documentation entered by Ramon Small SCRIBE, acting as scribe for Cuate Colorado MD. Cuate Colorado MD: This documentation has been prepared by the Geovanny grullon Daniel, SCRIBE, under my direction and personally reviewed by me in its entirety. I confirm that the documentation accurately reflects all work, treatment, procedures, and medical decision making performed by me. Attending Attestation - Resident Resident Name: CarrieRuth - ED Attending Attestation I have performed the following: I have examined & evaluated the patient, The case was reviewed & discussed with the resident, I agree w/resident's findings & plan, Exceptions are as noted - HPI HPI: 05/10/19 12:00 79 M with h/o HTN, anemia, presenting to ED with LLE edema and erythema. Pt states that he has chronic BLE edema. The left is usually worse than the right, though it waxes and wanes. Pt notes that over the past week, both legs have been progressively more swollen, L>R. Over the past 4 days, he developed redness in his L leg as well. He notes that it started as a rash in his L calf that gradually spread around his lower leg. Denies F/C. Pt denies SOB. Denies CP. No recent travel/immobilization. - Physicial Exam PE: 05/10/19 12:05 "GENERAL: Awake, alert, and fully oriented, in no acute distress. HEAD: No signs of trauma EYES: PERRLA, EOMI, sclera anicteric, conjunctiva clear ENT: Auricles normal inspection, hearing grossly normal, nares patent, oropharynx clear without exudates. Moist mucosa NECK: Nontender, no stepoffs, Normal ROM, supple, no lymphadenopathy, JVD, or masses LUNGS: Breath sounds equal, clear to auscultation bilaterally. No wheezes, and no crackles HEART: Regular rate and rhythm, normal S1 and S2, no murmurs, rubs or gallops ABDOMEN: Soft, nontender, normoactive bowel sounds. No guarding, no rebound. No masses EXTREMITIES: 2+ PE BLE, L>R, erythema and warmth around L hughes NEUROLOGICAL: Cranial nerves II through XII intact. 5/5 strength and sensation in all extremities, Normal speech, normal gait, normal cerebellar function SKIN: Warm, Dry, normal turgor, no rashes or lesions noted. - Medical Decision Making 05/10/19 12:05 79 M with BLE edema, L>R. LLE with erythema and warmth as well. Suspect cellulitis. Will r/o DVT given asymmetry. Pt without any CP/SOB to suggest CHF/ overload. - Labs, BNP - CXR - Doppler - Abx 05/10/19 14:51 Labs wnl CXR clear Doppler negative for DVT Will tx for cellulitis Pt offered inpt admission for IV abx. However, he is adamant that he wants to go home. Will tx with dalvance. Pt to f/u in 48 hours for wound check. Pt is well appearing, with normal vitals. Clinically stable for DC at this time. I discussed the physical exam findings, ancillary test results and final diagnoses with the patient. I answered all of the patient's questions. The patient was satisfied with the care received and felt comfortable with the discharge plan and treatment plan. The patient agrees to follow up with the primary care physician within 24-72 hours.
[2019-05-10 12:47] LABS: BASO % 0.6 % (0-2.0); EOS % 3.5 % (0-4.5); HEMATOCRIT 43.3 % (35.4-49); HEMOGLOBIN 14.4 GM/dL (11.7-16.9); LYMPH % 20.9 % (8-40); MCH 29.7 pg (25.7-33.7); MCHC 33.2 g/dl (32.0-35.9); MEAN CELL VOLUME 89.3 fl (80-96); MEAN PLT VOLUME 9.8 fl (7.5-11.1); MONO % 11.3 % (3.8-10.2); NEUT % 63.7 % (42.8-82.8); PLATELET COUNT 165 K/MM3 (134-434); RBC 4.85 M/mm3 (4.00-5.60); RDW 14.3 % (11.9-15.9); WHITE BLOOD COUNT 9.1 K/mm3 (4.0-10.0)
[2019-05-10 12:59] LABS: INR 1.01 (0.83-1.09); PROTHROMBIN TIME (PATIENT) 11.9 SEC (9.7-13.0)
[2019-05-10 13:21] LABS: ALBUMIN 3.6 g/dl (3.4-5.0); ALK PHOS 78 U/L (45-117); ANION GAP 9 MMOL/L (8-16); BILIRUBIN,TOTAL 0.7 mg/dL (0.2-1); BLOOD UREA NITROGEN 32.9 mg/dL (7-18); CHLORIDE 101 mmol/L (98-107); CO2 28 mmol/L (21-32); CREATININE 1.3 mg/dL (0.55-1.3); GLUCOSE,RANDOM 90 mg/dL (74-106); N-TERMINAL BNP 67.2 pg/ml (5-450); POTASSIUM 3.1 mmol/L (3.5-5.1); SGOT/AST 26 U/L (15-37); SGPT/ALT 28 U/L (13-61); SODIUM 137 mmol/L (136-145); TOT PROT 6.9 g/dl (6.4-8.2)
[2019-05-10] MEDS ORDERED: DALBAVANCIN HCL 1,500 MG in DEXTROSE 5%-WATER - 500 ML IVPB ONE (13:41)
[2019-05-10] MEDS ORDERED: DALBAVANCIN HCL 500 MG VIAL (RESTRICTED TO ID ONLY) IVPB ONE (13:57)
[2019-05-10] MEDS ORDERED: POTASSIUM CHLORIDE TABS 20 MEQ TABLET.ER (FP) PO ONE ×2 (14:03→14:32)
[2019-05-10 15:49] VITALS: BP 136/69; PULSE 74; TEMP 97.9
== END 2019-05-10 15:49 | disposition home or self-care (01) ==
LOC: JER 09:07
DX: L03.116 Cellulitis of left lower limb (principal); I10 Essential (primary) hypertension; G40.909 Epilepsy, unspecified, not intractable, without status epilepticus; D64.9 Anemia, unspecified; Z87.19 Personal history of other diseases of the digestive system
CPT/HCPCS: 36415; 71046-TC-FY; 80053; 82550; 82553; 83880; 84484; 85025; 85610; 85730; 93971-TC; 96365; 99283-25; J0875

== ENCOUNTER 2020-10-25 18:16 | Inpatient (IN) | payer OTHER ==
[2020-10-25 20:45] LABS: BASO % 0.2 % (0-2.0); EOS % 0.1 % (0-4.5); HEMOGLOBIN 13.9 GM/dL (11.7-16.9); LYMPH % 7.7 % (8-40); MCH 29.1 pg (25.7-33.7); MCHC 33.2 g/dl (32.0-35.9); MEAN CELL VOLUME 87.8 fl (80-96); MEAN PLT VOLUME 9.4 fl (7.5-11.1); MONO % 9.8 % (3.8-10.2); NEUT % 82.2 % (42.8-82.8); PLATELET COUNT 117 10^3/uL (134-434); RBC 4.78 M/mm3 (4.00-5.60); RDW 14.3 % (11.9-15.9)
[2020-10-25 20:54] LABS: PROTHROMBIN TIME (PATIENT) 12.1 SEC (9.7-13.0)
[2020-10-25] MEDS ORDERED: PIPERACILLIN/TAZOB 3.375 GM 3.375 GM in DEXTROSE 5%-WATER - 50 ML IVPB ONE (20:56)
[2020-10-25 20:58] LABS: ACTIVATED PTT 22.6 SECONDS (25.2-36.5)
[2020-10-25] MEDS ORDERED: PIPERACILLIN/TAZOB 3.375 GM 3.375 GM/50 ML BAG IVPB ONE ×2 (20:59→21:00)
[2020-10-25 21:00] LABS: EPI CELLS 3 /uL (0-25.1); HYALINE CASTS 2 /uL (0-3.1); PH,URINE 5.5 (5.0-8.0); URINE APPEARANCE TURBID; URINE BACTERIA 6497 /uL (0-1359); URINE BILIRUBIN NEGATIVE (NEGATIVE); URINE COLOR ORANGE; URINE GLUCOSE (UA) NEGATIVE (NEGATIVE); URINE KETONE 1+ (NEGATIVE); URINE LEUK ESTERASE 3+ (NEGATIVE); URINE NITRITE NEGATIVE (NEGATIVE); URINE PROTEIN 2+ (NEGATIVE); URINE RBC 8627 /uL (0-23.9); URINE WBC 2867 /uL (0-25.8)
[2020-10-25 21:15] LABS: N-TERMINAL BNP 11841.4 pg/ml (5-450)
[2020-10-25 21:28] LABS: CALCIUM 8.7 mg/dL (8.5-10.1)
[2020-10-25 21:30] LABS: BLOOD UREA NITROGEN 35.4 mg/dL (7-18); MAGNESIUM 2.1 mg/dL (1.8-2.4)
[2020-10-25 21:32] LABS: CREATININE 2.1 mg/dL (0.55-1.3)
[2020-10-25 21:34] LABS: BILIRUBIN,TOTAL 0.7 mg/dL (0.2-1); TOT PROT 6.5 g/dl (6.4-8.2)
[2020-10-25 22:00] LABS: ANISOCYTOSIS 1+; MACROCYTOSIS 0; PLATELET ESTIMATE DECREASED
[2020-10-25] MEDS ORDERED: FUROSEMIDE 40 MG TABLET (FP) PO SCH (22:16)
[2020-10-26] MEDS ORDERED: ENOXAPARIN NA (PORCINE) 40 MG/0.4 ML DISP.SYRIN SQ ONE ×2 (01:22→09:55)
[2020-10-26] MEDS ORDERED: levETIRAcetam 500 MG TABLET (FP) PO ONE ×2 (01:22→09:54)
[2020-10-26] MEDS ORDERED: KCL 10 MEQ IVPB 10 MEQ/100 ML INFUS.BAG IVPB ONE ×2 (01:22→02:37)
[2020-10-26] MEDS: levETIRAcetam 500 MG TABLET (FP) PO SCH ×3 (01:28→22:28)
[2020-10-26] MEDS: ENOXAPARIN NA (PORCINE) 40 MG/0.4 ML DISP.SYRIN SQ SCH ×2 (01:28→10:09)
[2020-10-26] MEDS: KCL 10 MEQ IVPB 10 MEQ/100 ML INFUS.BAG IVPB SCH ×6 (01:28→15:43)
[2020-10-26] MEDS: D5-1/2NS+20 MEQ KCL - 20 MEQ/1,000 ML INFUS.BAG IV SCH ×2 (05:48→22:28)
[2020-10-26 07:15] LABS: BASO % 0.1 % (0-2.0); EOS % 0.1 % (0-4.5); HEMATOCRIT 40.4 % (35.4-49); HEMOGLOBIN 13.3 GM/dL (11.7-16.9); LYMPH % 6.7 % (8-40); MCH 29.1 pg (25.7-33.7); MEAN CELL VOLUME 88.3 fl (80-96); MEAN PLT VOLUME 9.2 fl (7.5-11.1); MONO % 10.7 % (3.8-10.2); NEUT % 82.4 % (42.8-82.8); PLATELET COUNT 111 10^3/uL (134-434); RBC 4.57 M/mm3 (4.00-5.60); RDW 14.6 % (11.9-15.9); WHITE BLOOD COUNT 18.6 K/mm3 (4.0-10.0)
[2020-10-26 07:38] LABS: CALCIUM 8.4 mg/dL (8.5-10.1)
[2020-10-26 07:39] LABS: ALBUMIN 2.5 g/dl (3.4-5.0); BLOOD UREA NITROGEN 31.3 mg/dL (7-18)
[2020-10-26 07:41] LABS: CREATININE 1.8 mg/dL (0.55-1.3)
[2020-10-26 07:43] LABS: BILIRUBIN,TOTAL 0.7 mg/dL (0.2-1); TOT PROT 5.8 g/dl (6.4-8.2)
[2020-10-26] MEDS ORDERED: PT OWN MED DRAWER 7, Y5N ONE (09:52)
[2020-10-26] MEDS ORDERED: LOSARTAN POTASSIUM 50 MG TABLET ONE (09:54)
[2020-10-26] MEDS ORDERED: PANTOPRAZOLE 40 MG TABLET ONE (09:54)
[2020-10-26] MEDS ORDERED: CHOLECALCIFEROL (VIT D3) 1,000 UNIT (25 MCG) TABLET ONE (09:55)
[2020-10-26] MEDS ORDERED: FUROSEMIDE 40 MG TABLET (FP) PO SCH (10:00)
[2020-10-26] MEDS: FUROSEMIDE 20 MG TABLET (FP) PO SCH (10:10)
[2020-10-26] MEDS: PANTOPRAZOLE 40 MG TABLET PO SCH (10:10)
[2020-10-26] MEDS: CHOLECALCIFEROL (VIT D3) 1,000 UNIT (25 MCG) TABLET PO SCH (10:10)
[2020-10-26] MEDS: amLODIPine BESYLATE 10 MG TABLET (FP) PO SCH (10:10)
[2020-10-26] MEDS: LOSARTAN POTASSIUM 50 MG TABLET PO SCH (10:10)
[2020-10-26] MEDS ORDERED: KCL 10 MEQ IVPB 30 MEQ/300 ML INFUS.BAG IVPB ONE (12:13)
[2020-10-26] MEDS: PIPERACILLIN/TAZOB 3.375 GM 3.375 GM in DEXTROSE 5%-WATER - 50 ML IVPB SCH (15:40)
[2020-10-26] MEDS ORDERED: PIPERACILLIN/TAZOB 3.375 GM 3.375 GM/50 ML BAG IVPB ONE (15:44)
[2020-10-26] MEDS: ATORVASTATIN CA 40 MG TABLET (FP) PO SCH (22:28)
[2020-10-27] MEDS ORDERED: PIPERACILLIN/TAZOBACTAM 3.375 GM VIAL IVPB ONE ×3 (02:25→19:00)
[2020-10-27] MEDS ORDERED: DEXTROSE 5%-WATER - 50 ML IVPB ONE ×2 (02:25→09:46)
[2020-10-27] MEDS: PIPERACILLIN/TAZOB 3.375 GM 3.375 GM in DEXTROSE 5%-WATER - 50 ML IVPB SCH ×5 (03:01→19:43)
[2020-10-27] MEDS: D5-1/2NS+20 MEQ KCL - 20 MEQ/1,000 ML INFUS.BAG IV SCH (03:43)
[2020-10-27 07:43] LABS: BASO % 0.2 % (0-2.0); EOS % 0.8 % (0-4.5); HEMATOCRIT 40.2 % (35.4-49); HEMOGLOBIN 12.9 GM/dL (11.7-16.9); MCH 28.6 pg (25.7-33.7); MCHC 32.1 g/dl (32.0-35.9); MEAN CELL VOLUME 89.1 fl (80-96); MEAN PLT VOLUME 9.3 fl (7.5-11.1); MONO % 11.4 % (3.8-10.2); NEUT % 77.6 % (42.8-82.8); PLATELET COUNT 125 10^3/uL (134-434); RBC 4.51 M/mm3 (4.00-5.60); RDW 14.5 % (11.9-15.9); WHITE BLOOD COUNT 15.4 K/mm3 (4.0-10.0)
[2020-10-27 08:09] LABS: BLOOD UREA NITROGEN 28.3 mg/dL (7-18)
[2020-10-27 08:12] LABS: CREATININE 1.8 mg/dL (0.55-1.3)
[2020-10-27] MEDS: ENOXAPARIN NA (PORCINE) 40 MG/0.4 ML DISP.SYRIN SQ SCH (10:20)
[2020-10-27] MEDS: LOSARTAN POTASSIUM 50 MG TABLET PO SCH (10:21)
[2020-10-27] MEDS: levETIRAcetam 500 MG TABLET (FP) PO SCH ×2 (10:21→21:47)
[2020-10-27] MEDS: FUROSEMIDE 20 MG TABLET (FP) PO SCH (10:21)
[2020-10-27] MEDS: CHOLECALCIFEROL (VIT D3) 1,000 UNIT (25 MCG) TABLET PO SCH (10:21)
[2020-10-27] MEDS: amLODIPine BESYLATE 10 MG TABLET (FP) PO SCH (10:21)
[2020-10-27] MEDS: PANTOPRAZOLE 40 MG TABLET PO SCH (10:21)
[2020-10-27 10:24] LABS: ANISOCYTOSIS 0; MACROCYTOSIS 0; OVALOCYTE 1+; PLATELET ESTIMATE DECREASED; TEAR DROP CELLS 1+; TOXIC GRANULATION 2+
[2020-10-27 16:03] VITALS: BMI 37.5
[2020-10-27] MEDS: ATORVASTATIN CA 40 MG TABLET (FP) PO SCH (21:47)
[2020-10-28] MEDS ORDERED: DEXTROSE 5%-WATER - 50 ML IVPB ONE ×3 (01:17→17:09)
[2020-10-28] MEDS ORDERED: PIPERACILLIN/TAZOBACTAM 3.375 GM VIAL IVPB ONE ×3 (01:17→17:09)
[2020-10-28] MEDS: PIPERACILLIN/TAZOB 3.375 GM 3.375 GM in DEXTROSE 5%-WATER - 50 ML IVPB SCH ×3 (01:38→18:01)
[2020-10-28] MEDS: D5-1/2NS+20 MEQ KCL - 20 MEQ/1,000 ML INFUS.BAG IV SCH ×2 (01:43→06:14)
[2020-10-28 08:11] LABS: BASO % 0.7 % (0-2.0); EOS % 2.1 % (0-4.5); HEMATOCRIT 39.2 % (35.4-49); HEMOGLOBIN 12.9 GM/dL (11.7-16.9); LYMPH % 17.5 % (8-40); MCH 29.3 pg (25.7-33.7); MCHC 33.1 g/dl (32.0-35.9); MEAN CELL VOLUME 88.7 fl (80-96); MONO % 9.5 % (3.8-10.2); NEUT % 70.2 % (42.8-82.8); PLATELET COUNT 162 10^3/uL (134-434); RBC 4.41 M/mm3 (4.00-5.60); RDW 14.6 % (11.9-15.9); WHITE BLOOD COUNT 9.9 K/mm3 (4.0-10.0)
[2020-10-28 08:26] LABS: ALBUMIN 2.4 g/dl (3.4-5.0); CALCIUM 8.2 mg/dL (8.5-10.1)
[2020-10-28 08:27] LABS: BLOOD UREA NITROGEN 26.6 mg/dL (7-18)
[2020-10-28 08:30] LABS: CREATININE 1.8 mg/dL (0.55-1.3)
[2020-10-28 08:31] LABS: BILIRUBIN,TOTAL 0.7 mg/dL (0.2-1)
[2020-10-28] MEDS ORDERED: ASPIRIN 81 MG CHEWABLE TABLETS PO SCH (10:00)
[2020-10-28] MEDS: levETIRAcetam 500 MG TABLET (FP) PO SCH ×2 (10:30→21:37)
[2020-10-28] MEDS: PANTOPRAZOLE 40 MG TABLET PO SCH (10:30)
[2020-10-28] MEDS: FUROSEMIDE 20 MG TABLET (FP) PO SCH (10:30)
[2020-10-28] MEDS: amLODIPine BESYLATE 10 MG TABLET (FP) PO SCH (10:30)
[2020-10-28] MEDS: CHOLECALCIFEROL (VIT D3) 1,000 UNIT (25 MCG) TABLET PO SCH (10:30)
[2020-10-28] MEDS: LOSARTAN POTASSIUM 50 MG TABLET PO SCH (10:30)
[2020-10-28 10:53] LABS: ANISOCYTOSIS 0; MACROCYTOSIS 0; PLATELET ESTIMATE NORMAL
[2020-10-28] MEDS: ATORVASTATIN CA 40 MG TABLET (FP) PO SCH (21:37)
[2020-10-28] MEDS: HYDROCORTISONE 2.5% TOPICAL CREAM 30 GM TUBE TP SCH (21:38)
[2020-10-29] MEDS ORDERED: PIPERACILLIN/TAZOBACTAM 3.375 GM VIAL IVPB ONE ×2 (01:58→08:19)
[2020-10-29] MEDS ORDERED: DEXTROSE 5%-WATER - 50 ML IVPB ONE ×2 (01:58→08:19)
[2020-10-29] MEDS: D5-1/2NS+20 MEQ KCL - 20 MEQ/1,000 ML INFUS.BAG IV SCH ×3 (02:06→22:19)
[2020-10-29] MEDS: PIPERACILLIN/TAZOB 3.375 GM 3.375 GM in DEXTROSE 5%-WATER - 50 ML IVPB SCH ×2 (02:07→09:19)
[2020-10-29 06:55] LABS: BASO % 0.4 % (0-2.0); EOS % 2.6 % (0-4.5); HEMATOCRIT 38.1 % (35.4-49); HEMOGLOBIN 12.6 GM/dL (11.7-16.9); MCH 29.2 pg (25.7-33.7); MCHC 33.1 g/dl (32.0-35.9); MEAN CELL VOLUME 88.2 fl (80-96); PLATELET COUNT 174 10^3/uL (134-434); RBC 4.32 M/mm3 (4.00-5.60); RDW 14.6 % (11.9-15.9); WHITE BLOOD COUNT 9.1 K/mm3 (4.0-10.0)
[2020-10-29 07:18] LABS: ALBUMIN 2.3 g/dl (3.4-5.0)
[2020-10-29 07:19] LABS: BLOOD UREA NITROGEN 25.7 mg/dL (7-18)
[2020-10-29 07:21] LABS: CREATININE 1.8 mg/dL (0.55-1.3)
[2020-10-29 07:22] LABS: BILIRUBIN,TOTAL 0.6 mg/dL (0.2-1)
[2020-10-29] MEDS: LOSARTAN POTASSIUM 50 MG TABLET PO SCH (09:19)
[2020-10-29] MEDS: PANTOPRAZOLE 40 MG TABLET PO SCH (09:20)
[2020-10-29] MEDS: FUROSEMIDE 20 MG TABLET (FP) PO SCH (09:20)
[2020-10-29] MEDS: amLODIPine BESYLATE 10 MG TABLET (FP) PO SCH (09:20)
[2020-10-29] MEDS: levETIRAcetam 500 MG TABLET (FP) PO SCH ×2 (09:20→22:16)
[2020-10-29] MEDS: CHOLECALCIFEROL (VIT D3) 1,000 UNIT (25 MCG) TABLET PO SCH (09:20)
[2020-10-29] MEDS: HYDROCORTISONE 2.5% TOPICAL CREAM 30 GM TUBE TP SCH ×2 (09:20→22:16)
[2020-10-29 10:37] LABS: ANISOCYTOSIS 0; MACROCYTOSIS 0; OVALOCYTE 1+; PLATELET ESTIMATE NORMAL
[2020-10-29] MEDS ORDERED: DEXTROSE 5%-WATER 100 ML IVPB ONE ×2 (16:29→16:33)
[2020-10-29] MEDS: CEFTRIAXONE 2 GM in DEXTROSE 5%-WATER 2 GM/100 ML BAG IVPB SCH (16:33)
[2020-10-29] MEDS: ATORVASTATIN CA 40 MG TABLET (FP) PO SCH (22:16)
[2020-10-30 07:31] LABS: BASO % 0.5 % (0-2.0); EOS % 2.1 % (0-4.5); HEMOGLOBIN 12.3 GM/dL (11.7-16.9); LYMPH % 19.1 % (8-40); MCH 28.9 pg (25.7-33.7); MCHC 32.2 g/dl (32.0-35.9); MEAN CELL VOLUME 89.7 fl (80-96); MEAN PLT VOLUME 8.4 fl (7.5-11.1); MONO % 8.5 % (3.8-10.2); NEUT % 69.8 % (42.8-82.8); PLATELET COUNT 212 10^3/uL (134-434); RBC 4.24 M/mm3 (4.00-5.60); RDW 14.6 % (11.9-15.9); WHITE BLOOD COUNT 7.6 K/mm3 (4.0-10.0)
[2020-10-30 07:48] LABS: CALCIUM 7.9 mg/dL (8.5-10.1)
[2020-10-30 07:49] LABS: BLOOD UREA NITROGEN 20.4 mg/dL (7-18)
[2020-10-30 07:52] LABS: CREATININE 1.8 mg/dL (0.55-1.3)
[2020-10-30] MEDS ORDERED: DEXTROSE 5%-WATER 100 ML IVPB ONE (08:28)
[2020-10-30] MEDS: CEFTRIAXONE 2 GM in DEXTROSE 5%-WATER 2 GM/100 ML BAG IVPB SCH (08:59)
[2020-10-30] MEDS: CHOLECALCIFEROL (VIT D3) 1,000 UNIT (25 MCG) TABLET PO SCH (09:00)
[2020-10-30] MEDS: LOSARTAN POTASSIUM 50 MG TABLET PO SCH (09:00)
[2020-10-30] MEDS: amLODIPine BESYLATE 10 MG TABLET (FP) PO SCH (09:01)
[2020-10-30] MEDS: levETIRAcetam 500 MG TABLET (FP) PO SCH ×2 (09:01→21:17)
[2020-10-30] MEDS: PANTOPRAZOLE 40 MG TABLET PO SCH (09:01)
[2020-10-30] MEDS: HYDROCORTISONE 2.5% TOPICAL CREAM 30 GM TUBE TP SCH ×2 (09:04→21:17)
[2020-10-30] MEDS: ATORVASTATIN CA 40 MG TABLET (FP) PO SCH (21:17)
[2020-10-31 06:34] VITALS: TEMP 97.8
[2020-10-31 06:56] LABS: BASO % 0.5 % (0-2.0); HEMATOCRIT 38.4 % (35.4-49); HEMOGLOBIN 12.7 GM/dL (11.7-16.9); LYMPH % 20.9 % (8-40); MCH 29.4 pg (25.7-33.7); MCHC 33.1 g/dl (32.0-35.9); MEAN CELL VOLUME 88.7 fl (80-96); MEAN PLT VOLUME 8.2 fl (7.5-11.1); MONO % 8.1 % (3.8-10.2); NEUT % 68.5 % (42.8-82.8); PLATELET COUNT 249 10^3/uL (134-434); RBC 4.33 M/mm3 (4.00-5.60); RDW 14.2 % (11.9-15.9); WHITE BLOOD COUNT 8.2 K/mm3 (4.0-10.0)
[2020-10-31] MEDS ORDERED: DEXTROSE 5%-WATER 100 ML IVPB ONE (08:39)
[2020-10-31] MEDS ORDERED: FUROSEMIDE 40 MG/4 ML INJECTABLE VIAL IVPUSH ONE (08:41)
[2020-10-31 08:50] VITALS: BP 111/72; PULSE 78
[2020-10-31] MEDS: HYDROCORTISONE 2.5% TOPICAL CREAM 30 GM TUBE TP SCH (09:33)
[2020-10-31] MEDS: CHOLECALCIFEROL (VIT D3) 1,000 UNIT (25 MCG) TABLET PO SCH (09:34)
[2020-10-31] MEDS: levETIRAcetam 500 MG TABLET (FP) PO SCH (09:34)
[2020-10-31] MEDS: LOSARTAN POTASSIUM 50 MG TABLET PO SCH (09:34)
[2020-10-31] MEDS: amLODIPine BESYLATE 10 MG TABLET (FP) PO SCH (09:34)
[2020-10-31] MEDS: CEFTRIAXONE 2 GM in DEXTROSE 5%-WATER 2 GM/100 ML BAG IVPB SCH (09:35)
[2020-10-31] MEDS: PANTOPRAZOLE 40 MG TABLET PO SCH (09:35)
[2020-10-31] MEDS ORDERED: FUROSEMIDE 20 MG TABLET (FP) PO SCH (10:00)
[2020-10-31] MEDS ORDERED: POTASSIUM CHLORIDE TABS 20 MEQ TABLET.ER (FP) PO SCH (10:00)
[2020-11-01] MEDS ORDERED: CEFUROXIME AXETIL 250 MG TABLET PO SCH (08:00)
[2020-11-01] MEDS ORDERED: FUROSEMIDE 20 MG TABLET (FP) PO SCH (10:00)
== END 2020-10-31 17:06 | disposition home or self-care (01) | DRG 872 ==
LOC: JER 18:16 → JERBED 21:09 → J4W 10-26 20:51
PROVIDERS: ADMIT Internal Medicine; ATTEND Internal Medicine
DX: A41.51 Sepsis due to Escherichia coli [E. coli] (principal); N39.0 Urinary tract infection, site not specified; N17.9 Acute kidney failure, unspecified; M62.82 Rhabdomyolysis; I24.8 Other forms of acute ischemic heart disease; K62.5 Hemorrhage of anus and rectum; I10 Essential (primary) hypertension; D64.9 Anemia, unspecified; K64.8 Other hemorrhoids; E87.6 Hypokalemia; E66.9 Obesity, unspecified; Z68.37 Body mass index [BMI] 37.0-37.9, adult; E88.09 Other disorders of plasma-protein metabolism, not elsewhere classified; G40.909 Epilepsy, unspecified, not intractable, without status epilepticus; E77.8 Other disorders of glycoprotein metabolism; E78.5 Hyperlipidemia, unspecified; R60.0 Localized edema; K40.90 Unilateral inguinal hernia, without obstruction or gangrene, not specified as recurrent; D69.6 Thrombocytopenia, unspecified; Z87.442 Personal history of urinary calculi
CPT/HCPCS: 36415; 71045-TC-FY; 71046-TC-FY; 76775-TC; 76856-TC; 80048; 80053; 80061; 81003; 82550; 82553; 83605; 83721; 83735; 83880; 84484; 85025; 85610; 85730; 87040; 87086; 87186; 93005; 93010; 93306-TC; 97116-GP; 97161-GP; 99285-25; C9803; U0003; U0005

== ENCOUNTER 2021-10-17 10:49 | Emergency (ER) | payer OTHER ==
[2021-10-17 10:55] VITALS: BP 156/72; PULSE 84; TEMP 98.3; BMI 35.5
== END 2021-10-17 12:23 | disposition home or self-care (01) ==
LOC: JERFT 10:49 → JER 10:49 → JERFT 12:23
DX: L03.113 Cellulitis of right upper limb (principal)
CPT/HCPCS: 73070-TC-RT-FY; 99283-25

== ENCOUNTER 2022-03-12 04:25 | Day surgery (SDC) | payer OTHER ==
[2022-02-24 11:03] VITALS: BMI 35.5
[~2022-03-12 04:25] MED LIST: ACETAMINOPHEN 325 MG TABLET (FP) PO PRN; BSS (NA/CA/MG/K) BALANCED SALT SOLUTION OPHTH SOLN 15 ML BOTTLE OS ONE; CHONDROITIN SU A/HYALUR SOD 1 KIT IO ONE; CYCLOPENTOLATE HCL 1% OPHTH SOLN 2 ML BOTTLE OP SCH; EPINEPHrine/PF 1 MG/1 ML (1:1,000) AMPULE SQ ONE; KETOROLAC TROMETHAMINE 0.5% EYE DROP 1 DROP DROPS OP SCH; LIDOCAINE 1% P/F 10 MG/ML VIAL PNB ONE; OFLOXACIN 0.3% OPHTHALMIC SOLUTION 5 ML BOTTLE OP SCH; PHENYLEPHRINE 2.5% OPHTH SOLN 15 ML BOTTLE OP SCH; POVIDONE-IODINE 5% OPHTHALMIC PREP 30 ML SOLUTION OS ONE; TETRACAINE 0.5% HCL 0.6ML DROPPER.BOTTLE OS ONE; TROPICAMIDE 1% OPHTH SOLN 15 ML BOTTLE OP SCH; TRYPAN BLUE 0.5 ML DISP.SYRIN IO ONE
[2022-03-12] MEDS ORDERED: KETOROLAC TROMETHAMINE 0.5% EYE DROP 1 DROP DROPS ONE (08:09)
[2022-03-12] MEDS ORDERED: TROPICAMIDE 1% OPHTH SOLN 15 ML BOTTLE ONE (08:09)
[2022-03-12] MEDS ORDERED: CYCLOPENTOLATE HCL 1% OPHTH SOLN 2 ML BOTTLE ONE (08:09)
[2022-03-12] MEDS ORDERED: OFLOXACIN 0.3% OPHTHALMIC SOLUTION 5 ML BOTTLE ONE (08:09)
[2022-03-12] MEDS ORDERED: PHENYLEPHRINE 2.5% OPHTH SOLN 15 ML BOTTLE ONE (08:09)
[2022-03-12] MEDS ORDERED: TROPICAMIDE 1% OPHTH SOLN 15 ML BOTTLE OS ONE ×3 (08:19→08:39)
[2022-03-12] MEDS: CYCLOPENTOLATE HCL 1% OPHTH SOLN 2 ML BOTTLE OP SCH ×3 (08:19→08:39)
[2022-03-12] MEDS: KETOROLAC TROMETHAMINE 0.5% EYE DROP 1 DROP DROPS OP SCH ×3 (08:19→08:39)
[2022-03-12] MEDS: OFLOXACIN 0.3% OPHTHALMIC SOLUTION 5 ML BOTTLE OP SCH ×3 (08:19→08:39)
[2022-03-12] MEDS: PHENYLEPHRINE 2.5% OPHTH SOLN 15 ML BOTTLE OP SCH ×3 (08:19→08:39)
[2022-03-12 08:28] VITALS: RESP 20
[2022-03-12] MEDS ORDERED: MIDAZOLAM HCL 2 MG/2 ML SINGLE DOSE VIAL ONE (09:43)
[2022-03-12] MEDS ORDERED: TETRACAINE 0.5% HCL 0.6ML DROPPER.BOTTLE OS ONE (10:04)
[2022-03-12] MEDS ORDERED: POVIDONE-IODINE 5% OPHTHALMIC PREP 30 ML SOLUTION OS ONE (10:06)
[2022-03-12] MEDS ORDERED: BSS (NA/CA/MG/K) BALANCED SALT SOLUTION OPHTH SOLN 15 ML BOTTLE OS ONE (10:13)
[2022-03-12] MEDS ORDERED: LIDOCAINE 1% P/F 10 MG/ML VIAL PNB ONE (10:14)
[2022-03-12] MEDS ORDERED: CHONDROITIN SU A/HYALUR SOD 1 KIT IO ONE (10:15)
[2022-03-12] MEDS ORDERED: EPINEPHrine/PF 1 MG/1 ML (1:1,000) AMPULE SQ ONE (10:20)
[2022-03-12 14:33] VITALS: TEMP 97.7
[2022-03-12 14:35] VITALS: BP 139/63; PULSE 72
== END 2022-03-12 11:30 | disposition home or self-care (01) ==
LOC: JASU-SURG 04:25
PROVIDERS: ATTEND Ophthalmology
PROC: 08RK3JZ Replacement of Left Lens with Synthetic Substitute, Percutaneous Approach (ICD-10-PCS; principal; 2022-03-12 10:00)
DX: H26.9 Unspecified cataract (principal)
CPT/HCPCS: V2632

== ENCOUNTER 2022-04-09 04:24 | Day surgery (SDC) | payer OTHER ==
[2022-04-07 14:51] VITALS: BMI 35.5
[~2022-04-09 04:24] MED LIST changes: +BSS (NA/CA/MG/K) BALANCED SALT SOLUTION OPHTH SOLN 15 ML BOTTLE OD ONE; -BSS (NA/CA/MG/K) BALANCED SALT SOLUTION OPHTH SOLN 15 ML BOTTLE OS ONE; -CYCLOPENTOLATE HCL 1% OPHTH SOLN 2 ML BOTTLE OP SCH; -KETOROLAC TROMETHAMINE 0.5% EYE DROP 1 DROP DROPS OP SCH; -OFLOXACIN 0.3% OPHTHALMIC SOLUTION 5 ML BOTTLE OP SCH; -PHENYLEPHRINE 2.5% OPHTH SOLN 15 ML BOTTLE OP SCH; +POVIDONE-IODINE 5% OPHTHALMIC PREP 30 ML SOLUTION OD ONE; -POVIDONE-IODINE 5% OPHTHALMIC PREP 30 ML SOLUTION OS ONE; -TETRACAINE 0.5% HCL 0.6ML DROPPER.BOTTLE OS ONE; +TETRACAINE 0.5% OPHTH SOLN 2 ML BOTTLE OD ONE; -TROPICAMIDE 1% OPHTH SOLN 15 ML BOTTLE OP SCH; -TRYPAN BLUE 0.5 ML DISP.SYRIN IO ONE
[2022-04-09] MEDS ORDERED: KETOROLAC TROMETHAMINE 0.5% EYE DROP 1 DROP DROPS ONE (06:37)
[2022-04-09] MEDS ORDERED: CYCLOPENTOLATE HCL 1% OPHTH SOLN 2 ML BOTTLE ONE (06:37)
[2022-04-09] MEDS ORDERED: PHENYLEPHRINE 2.5% OPHTH SOLN 15 ML BOTTLE ONE (06:37)
[2022-04-09] MEDS ORDERED: TROPICAMIDE 1% OPHTH SOLN 15 ML BOTTLE ONE (06:38)
[2022-04-09] MEDS ORDERED: OFLOXACIN 0.3% OPHTHALMIC SOLUTION 5 ML BOTTLE ONE (06:38)
[2022-04-09] MEDS ORDERED: TROPICAMIDE 1% OPHTH SOLN 15 ML BOTTLE OD ONE ×3 (06:55→07:10)
[2022-04-09] MEDS ORDERED: KETOROLAC TROMETHAMINE 0.5% EYE DROP 1 DROP DROPS OD ONE ×3 (06:55→07:10)
[2022-04-09] MEDS ORDERED: CYCLOPENTOLATE HCL 1% OPHTH SOLN 2 ML BOTTLE OD ONE ×3 (06:55→07:10)
[2022-04-09] MEDS ORDERED: PHENYLEPHRINE 2.5% OPHTH SOLN 15 ML BOTTLE OD ONE ×3 (06:55→07:10)
[2022-04-09] MEDS ORDERED: OFLOXACIN 0.3% OPHTHALMIC SOLUTION 5 ML BOTTLE OD ONE ×3 (06:55→07:10)
[2022-04-09] MEDS ORDERED: ONDANSETRON 4 MG/2 ML VIAL ONE (07:33)
[2022-04-09] MEDS ORDERED: FENTANYL CITRATE/PF 50 MCG/ML VIAL ONE (08:06)
[2022-04-09] MEDS ORDERED: TETRACAINE 0.5% OPHTH SOLN 2 ML BOTTLE OD ONE (08:11)
[2022-04-09] MEDS ORDERED: POVIDONE-IODINE 5% OPHTHALMIC PREP 30 ML SOLUTION OD ONE (08:13)
[2022-04-09] MEDS ORDERED: BSS (NA/CA/MG/K) BALANCED SALT SOLUTION OPHTH SOLN 15 ML BOTTLE OD ONE ×2 (08:19→08:20)
[2022-04-09] MEDS ORDERED: LIDOCAINE 1% P/F 10 MG/ML VIAL PNB ONE (08:20)
[2022-04-09] MEDS ORDERED: CHONDROITIN SU A/HYALUR SOD 1 KIT IO ONE (08:21)
[2022-04-09] MEDS ORDERED: EPINEPHrine/PF 1 MG/1 ML (1:1,000) AMPULE SQ ONE (08:26)
[2022-04-09 09:01] VITALS: PULSE 50; RESP 18
[2022-04-09 10:12] VITALS: BP 110/60; TEMP 97
[2022-04-09] MEDS ORDERED: KETOROLAC TROMETHAMINE 0.5% EYE DROP 1 DROP DROPS OP SCH (12:00)
[2022-04-09] MEDS ORDERED: CYCLOPENTOLATE HCL 1% OPHTH SOLN 2 ML BOTTLE OP SCH (12:00)
[2022-04-09] MEDS ORDERED: TROPICAMIDE 1% OPHTH SOLN 15 ML BOTTLE OP SCH (12:00)
[2022-04-09] MEDS ORDERED: PHENYLEPHRINE 2.5% OPHTH SOLN 15 ML BOTTLE OP SCH (12:00)
[2022-04-09] MEDS ORDERED: OFLOXACIN 0.3% OPHTHALMIC SOLUTION 5 ML BOTTLE OP SCH (12:00)
== END 2022-04-09 10:14 | disposition home or self-care (01) ==
LOC: JASU-SURG 04:24
PROVIDERS: ATTEND Ophthalmology
PROC: 08RJ3JZ Replacement of Right Lens with Synthetic Substitute, Percutaneous Approach (ICD-10-PCS; principal; 2022-04-09 08:00)
DX: H26.9 Unspecified cataract (principal)
CPT/HCPCS: V2632

== ENCOUNTER 2023-01-29 02:14 | Inpatient (IN) | payer OTHER ==
[2023-01-29] MEDS ORDERED: levETIRAcetam 500 MG/5 ML INJECTION VIAL IVPB ONE ×2 (02:45→03:09)
[2023-01-29 03:10] LABS: BASO % 0.3 % (0-2.0); EOS % 0.3 % (0-4.5); HEMOGLOBIN 14.6 GM/dL (11.7-16.9); LYMPH % 4.7 % (8-40); MCH 30.7 pg (25.7-33.7); MCHC 34.7 g/dl (32.0-35.9); MEAN CELL VOLUME 88.4 fl (80-96); MEAN PLT VOLUME 9.1 fl (7.5-11.1); MONO % 5.3 % (3.8-10.2); NEUT % 89.4 % (42.8-82.8); PLATELET COUNT 140 10^3/uL (134-434); RBC 4.76 M/mm3 (4.00-5.60); RDW 14.5 % (11.9-15.9); WHITE BLOOD COUNT 10.4 K/mm3 (4.0-10.0)
[2023-01-29 03:28] LABS: POTASSIUM 3.6 mmol/L (3.5-5.1)
[2023-01-29 03:30] LABS: ALBUMIN 3.6 g/dl (3.4-5.0); CALCIUM 9.3 mg/dL (8.5-10.1); MAGNESIUM 2.4 mg/dL (1.8-2.4)
[2023-01-29 03:31] LABS: BLOOD UREA NITROGEN 29.9 mg/dL (7-18)
[2023-01-29 03:34] LABS: CREATININE 1.6 mg/dL (0.55-1.3)
[2023-01-29 03:35] LABS: BILIRUBIN,TOTAL 0.5 mg/dL (0.2-1); TOT PROT 6.9 g/dl (6.4-8.2)
[2023-01-29 03:43] LABS: PROTHROMBIN TIME (PATIENT) 11.6 SEC (9.7-13.0)
[2023-01-29 03:51] LABS: ACTIVATED PTT 24.1 SECONDS (25.2-36.5)
[2023-01-29 03:52] LABS: LACTIC ACID 3.7 mmol/L (0.4-2.0)
[2023-01-29] MEDS ORDERED: FUROSEMIDE 40 MG/4 ML INJECTABLE VIAL IVPUSH ONE (05:24)
[2023-01-29] MEDS: D5-1/2NS+10 MEQ KCL - 10 MEQ/1,000 ML INFUS.BAG IV SCH ×3 (05:26)
[2023-01-29] MEDS: HEPARIN NA (PORCINE) 5,000 UNITS/ML 1ML VIAL SQ SCH ×3 (06:22→21:50)
[2023-01-29] MEDS: PANTOPRAZOLE 40 MG TABLET PO SCH (06:22)
[2023-01-29 06:50] VITALS: BMI 35.2
[2023-01-29] MEDS ORDERED: ACETAMINOPHEN 325 MG TABLET (FP) PO PRN (06:55)
[2023-01-29 08:20] LABS: URINE APPEARANCE CLEAR; URINE BILIRUBIN NEGATIVE (NEGATIVE); URINE COLOR YELLOW; URINE GLUCOSE (UA) NEGATIVE (NEGATIVE); URINE KETONE NEGATIVE (NEGATIVE); URINE LEUK ESTERASE NEGATIVE (NEGATIVE); URINE NITRITE NEGATIVE (NEGATIVE); URINE PROTEIN NEGATIVE (NEGATIVE); URINE UROBILINOGEN 0.2 mg/dL (0.2-1.0)
[2023-01-29] MEDS: amLODIPine BESYLATE 10 MG TABLET (FP) PO SCH (10:29)
[2023-01-29] MEDS: LOSARTAN POTASSIUM 50 MG TABLET PO SCH (10:29)
[2023-01-29] MEDS: levETIRAcetam 500 MG/5 ML INJECTION VIAL IVPB SCH ×2 (10:34→21:50)
[2023-01-29 20:46] VITALS: RESP 18
[2023-01-29] MEDS ORDERED: ATORVASTATIN CA 40 MG TABLET (FP) PO SCH (22:00)
[2023-01-30] MEDS: HEPARIN NA (PORCINE) 5,000 UNITS/ML 1ML VIAL SQ SCH (05:34)
[2023-01-30] MEDS: D5-1/2NS+10 MEQ KCL - 10 MEQ/1,000 ML INFUS.BAG IV SCH (05:43)
[2023-01-30] MEDS: PANTOPRAZOLE 40 MG TABLET PO SCH (06:05)
[2023-01-30 08:15] LABS: BASO % 0.5 % (0-2.0); EOS % 2.9 % (0-4.5); HEMATOCRIT 43.5 % (35.4-49); HEMOGLOBIN 14.2 GM/dL (11.7-16.9); LYMPH % 25.5 % (8-40); MCH 29.5 pg (25.7-33.7); MCHC 32.6 g/dl (32.0-35.9); MEAN CELL VOLUME 90.3 fl (80-96); MEAN PLT VOLUME 9.5 fl (7.5-11.1); MONO % 9.3 % (3.8-10.2); NEUT % 61.8 % (42.8-82.8); PLATELET COUNT 147 10^3/uL (134-434); RBC 4.81 M/mm3 (4.00-5.60); WHITE BLOOD COUNT 6.5 K/mm3 (4.0-10.0)
[2023-01-30 08:31] VITALS: BP 117/70; PULSE 63; TEMP 98.5
[2023-01-30 08:51] LABS: BLOOD UREA NITROGEN 24.9 mg/dL (7-18)
[2023-01-30 08:55] LABS: CREATININE 1.4 mg/dL (0.55-1.3)
[2023-01-30] MEDS: amLODIPine BESYLATE 10 MG TABLET (FP) PO SCH (09:50)
[2023-01-30] MEDS: LOSARTAN POTASSIUM 50 MG TABLET PO SCH (09:50)
[2023-01-30] MEDS ORDERED: levETIRAcetam 500 MG TABLET (FP) PO SCH (10:00)
[2023-01-30 12:07] LABS: POTASSIUM 3.5 mmol/L (3.5-5.1)
[2023-02-04] MEDS ORDERED: levETIRAcetam 500 MG TABLET (FP) PO SCH (10:00)
== END 2023-01-30 12:21 | disposition home or self-care (01) | DRG 101 ==
LOC: JER 02:14 → JERBED 03:31 → J4S 05:45
PROVIDERS: ADMIT Internal Medicine; ATTEND Internal Medicine
DX: G40.409 Other generalized epilepsy and epileptic syndromes, not intractable, without status epilepticus (principal); E87.20 Acidosis, unspecified; E87.70 Fluid overload, unspecified; N18.9 Chronic kidney disease, unspecified; I12.9 Hypertensive chronic kidney disease with stage 1 through stage 4 chronic kidney disease, or unspecified chronic kidney disease; E78.5 Hyperlipidemia, unspecified; E66.9 Obesity, unspecified; Z68.35 Body mass index [BMI] 35.0-35.9, adult
CPT/HCPCS: 36415; 70450-TC; 71045-TC-FY; 73030-TC-RT-FY; 80048; 80053; 80177; 81003; 82550; 82553; 83605; 83735; 83880; 84484; 85025; 85610; 85730; 86850; 86900; 86901; 87086; 93005; 93010; 93306-TC; 97116-GP; 97161-GP; 99291; J1644